=== PATIENT | female | born 1990 | race Caucasian/White ===

== ENCOUNTER 2023-12-25 18:31 | Emergency (ER) | payer OTHER ==
[~2023-12-25] VITALS: Ht 162.6 cm; Wt 68.9 kg
[2023-12-25 19:32] VITALS: BP 136/92; PULSE 97; RESP 16; TEMP 97.8; O2SAT 97
[2023-12-25 19:35] VITALS: BP 136/92; TEMP 97.8
[2023-12-25] MEDS ORDERED: ALBU0.0912 IH (21:29)
[2023-12-25] MEDS ORDERED: BENZ100C6 PO (21:29)
[2023-12-25] MEDS: ALBUTEROL SULFATE/IPRATROPIU 3 ML SOL IH ONE (21:35)
[2023-12-25] MEDS ORDERED: AMOX875T3 PO (21:37)
[2023-12-25] MEDS: DEXAMETHASONE 10 MG/ML VIAL IM ONE (22:02)
[2023-12-25] MEDS: ALBUTEROL 0.083% 2.5 MG/3 ML NEBU INH ONE (22:08)
[2023-12-25 22:12] VITALS: PULSE 97; RESP 16; O2SAT 97
[2023-12-25 22:13] VITALS: PULSE 97; RESP 16; O2SAT 97
[2023-12-25 22:15] VITALS: PULSE 68; RESP 16; O2SAT 100
== END 2023-12-25 22:20 | disposition home or self-care (01) ==
LOC: MED 18:31
DX: R05.9 Cough, unspecified (principal); R06.02 Shortness of breath; R06.2 Wheezing; Z79.899 Other long term (current) drug therapy
CPT/HCPCS: 71045; 94640; 96372; 99284; J1100; J7613